=== PATIENT | male | born 1975 | race Caucasian/White ===

== ENCOUNTER 2019-03-24 13:20 | Emergency (ER) | payer BC ==
--- NOTE | 2019-03-24 14:18 | EDM.PDOC ---
ED HPI GENERAL MEDICAL PROBLEM - General Chief Complaint: Lower Extremity Injury/Pain Stated Complaint: ANKLE SWELLING Time Seen by Provider: 03/24/19 13:45 Source of Information: Reports: Patient History Limitations: Reports: No Limitations - History of Present Illness INITIAL COMMENTS - FREE TEXT/NARRATIVE: Patient present to have area of discoloration left ankle area evaluated. He noticed yesterday morning that he had some discomfort in left lower leg when he got out of bed and started to walk. Looked at sore area and noticed two small areas that appeared to be consistent with spider bite/insect bite. Over the last 24 hours, there has been gradual discoloration/bruising around this same area. Still has a bit of discomfort, but no significant worsening over the 24 hour period. No streaking of redness. No fevers/chills. No blisters/pustules, or drainage. No other changes/complaints. - Related Data Allergies Allergy/AdvReac Type Severity Reaction Status Date / Time No Known Allergies Allergy Verified 03/24/19 13:22 Home Meds: Home Meds Aspirin 81 mg PO DAILY 03/24/19 [History] Warfarin Sodium [Jantoven] 5 mg PO ASDIRECTED 03/24/19 [History] Past Medical History Cardiovascular History: Reports: Blood Clots/VTE/DVT Hematologic History: Reports: Anticoagulation Therapy, Other (See Below) Other Hematologic History: DVT Review of Systems - Review of Systems Review Of Systems: ROS reveals no pertinent complaints other than HPI. ED EXAM, GENERAL - Physical Exam Exam: See Below Exam Limited By: No Limitations General Appearance: Alert, No Apparent Distress, Obese Eye Exam: Bilateral Eye: EOMI, PERRL Nose: No: Nasal Deformity, Nasal Swelling, Nasal Drainage Throat/Mouth: Normal Voice, No Airway Compromise Head: Atraumatic, Normocephalic Neck: Supple Respiratory/Chest: No Respiratory Distress Extremities: Normal Range of Motion, Normal Capillary Refill. No: Joint Swelling, Pedro's Sign, Limited Range of Motion, Increased Warmth, Mottled, Pallor, Redness Neurological: Alert, Oriented, Normal Cognition, No Motor/Sensory Deficits Skin Exam: Warm, Other (area of bruising (non-blanching) discoloration just dorsal to left ankle. Two small more centralized purplish papules noted. No vesicles/pustules or drainage. No increased warmth to touch. Minimal swelling around involved area (approx 7cm across), mild discomfort with palpation over involved area. No tenderness note otherwise around ankle/left lower leg area. ) Course - Vital Signs Last Recorded V/S: Last Vital Signs Temp 36.8 C 03/24/19 13:25 Pulse 64 03/24/19 13:25 Resp 16 03/24/19 13:25 BP 130/84 03/24/19 13:25 Pulse Ox 99 03/24/19 13:25 - Orders/Labs/Meds Labs: Laboratory Tests 03/24/19 03/24/19 03/24/19 Range/Units 13:50 13:50 13:50 WBC 7.3 (4.0-10.2) K/uL RBC 4.68 (4.33-5.41) M/uL Hgb 14.0 (13.1-16.8) g/dL Hct 40.2 (39.0-49.0) % MCV 85.9 D (84.0-98.0) fL MCH 29.9 (28.2-33.3) pg MCHC 34.8 (31.7-36.0) g/dL RDW 14.0 (11.2-14.1) % Plt Count 135 L (150-350) K/uL Neut % (Auto) 72.5 (45.0-80.0) % Lymph % (Auto) 20.5 (10.0-50.0) % Tucker % (Auto) 5.3 (2.0-14.0) % Eos % (Auto) 1.4 (0.0-5.0) % Baso % (Auto) 0.3 (0.0-2.0) % Neut # (Auto) 5.30 (1.40-7.00) K/uL Lymph # (Auto) 1.50 (0.50-3.50) K/uL Tucker # (Auto) 0.39 (0.00-1.00) K/uL Eos # (Auto) 0.10 (0.00-0.50) K/uL Baso # (Auto) 0.02 (0.00-0.20) K/uL INR 3.4 D-Dimer, Quantitative < 100 (0-400) ng/mL - Re-Assessments/Exams Free Text/Narrative Re-Assessment/Exam: Normal white count. Normal DDImer. Elevated INR. Suspect insect bite based on history and exam. No appearance of infection. Do not suspect presence of blood clot. Recommend continued observation for the next several days. Patient is to return to ER or to clinic for recheck if any concerning symptoms develop such as worsening pain/redness/fevers/drainage. During visit we briefly discussed a small blackhead that was located above patient's left upper lip. Recommended punch biopsy removal of blackhead/pore if it every becomes bothersome to him. Demonstrated to patient how he can use the heads of two qtips to help express some of the excess sebum within the pore to help reduce the appearance of the blackhead. Patient is uncertain if it bothers him enough to have it permanently removed. Also recommended to patient that he not take Coumadin today/tomorrow and to get level rechecked on Monday as well as further dosing instructions from his primary clinic. Departure - Departure Time of Disposition: 14:17 Disposition: Home, Self-Care 01 Condition: Good Clinical Impression: Elevated INR Insect bite Qualifiers: Encounter type: initial encounter Site of insect bite: lower leg Laterality: unspecified laterality Qualified Code(s): S80.869A - Insect bite (nonvenomous), unspecified lower leg, initial encounter - Discharge Information *PRESCRIPTION DRUG MONITORING PROGRAM REVIEWED*: Not Applicable *COPY OF PRESCRIPTION DRUG MONITORING REPORT IN PATIENT HARPER: Not Applicable Instructions: Insect Bite, Adult, [id number] Referrals: Leanne Mai NP [Primary Care Provider] - Forms: ED Department Discharge Additional Instructions: Observe closely for changes. Follow up if you notice increased pain/swelling/ drainage/fever. No coumadin x2 days, get level rechecked on Monday. Resume Coumadin/change dosing based on recommendation from primary clinic.
== END 2019-03-24 14:30 | disposition home or self-care (01) ==
LOC: LL.ED 13:20
DX: S90.562A Insect bite (nonvenomous), left ankle, initial encounter (principal); R79.1 Abnormal coagulation profile; Z79.82 Long term (current) use of aspirin; Z79.01 Long term (current) use of anticoagulants; Z86.718 Personal history of other venous thrombosis and embolism; W57.XXXA Bitten or stung by nonvenomous insect and other nonvenomous arthropods, initial encounter
CPT/HCPCS: 36415; 85025; 85379; 85610; 99283